=== PATIENT | male | born 1995 | race Caucasian/White ===

== ENCOUNTER → 2017-02-27 | Day surgery (SDC) | payer OTHER ==
[2017-01-31 13:48] VITALS: Ht 175.3 cm; Wt 75.0 kg
--- NOTE | 2017-02-26 17:52 | HISTORY & PHYSICAL EXAMINATION ---
DATE OF ADMISSION: 02/27/2017 CHIEF COMPLAINT: Right axillary skin mass times many months. HISTORY OF PRESENT ILLNESS: The patient is a pleasant 21-year-old male who is here today, seen and evaluated by Dr. Werner. I was asked to perform a preoperative history and physical. He is scheduled to have an excision of a right axillary skin mass with Dr. Werner on 02/27/2017. He states that he has had the mass on and off for many months, maybe up to 2 years. He says it has been lanced in the past and he has expressed material from it in the past. It continues to return, it does fluctuate slightly in size. He denies any pain, fevers or chills. He states he has previously squeezed out some whitish material. It has been there at least for the last 6 months. 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 He is currently out of hockey and would like to have it excised. He denies any known injury. Denies any previous problems with his right axilla. Denies any numbness or tingling. Denies any evidence of infection and states that it becomes red one time but nothing recently. PAST MEDICAL HISTORY: No significant past medical history. CURRENT MEDICATIONS: He takes no daily medications. ALLERGIES: He has no known drug allergies. SOCIAL HISTORY: Denies any tobacco, alcohol or drug use. He is a [employer] student. He plays hockey. PAST SURGICAL HISTORY: [place] teeth extraction. FAMILY HISTORY: Reviewed and noncontributory. REVIEW OF SYSTEMS: He denies any recent cough, cold, fevers, chills, flu-like symptoms or hospitalizations. Denies any chest pain or shortness of breath. Denies any lightheadedness or dizziness. Denies any bleeding, clotting disorders. He denies any abdominal pain, nausea, vomiting, diarrhea, constipation or urinary symptoms. Denies any issues with hearing loss or blurry vision. PHYSICAL EXAMINATION: GENERAL: He is alert and oriented x3. He is in no acute distress. Well-dressed, well-nourished male, normal mood and affect. Height is 5 feet 9 inches, weighs 165 pounds. HEENT: Head is atraumatic, normocephalic. EYES: Extraocular movements intact. Pupils are equal, round and reactive to light. Sclerae are normal. EARS: Hearing is grossly normal. TMs are clear with normal light reflex. NOSE: Nares are patent bilaterally. THROAT: Oropharynx is clear. Mucous membranes are moist. Good dentition. Uvula midline. NECK: Supple without lymphadenopathy, nontender range of motion. Trachea midline. CHEST: Nontender to palpation. LUNGS: Clear to auscultation bilaterally. No adventitious sounds. HEART: Regular rate and rhythm, normal S1, S2, no murmurs appreciated. ABDOMEN: Soft, nontender. Bowel sounds heard in all 4 quadrants. EXTREMITIES: Examination of his right axilla reveals no lymphadenopathy. There is a 5 mm firm lesion confined to the subcutaneous area of the skin. There is some mild fluctuance. He has full movement of his shoulder with normal distal neurovascular function in axillary musculocutaneous, median, radial, and ulnar nerves. Full movement of the hand, wrist, forearm and elbow. Circulation is normal. There are no other lesions present and he does not have any pustules or pimples in his axilla. There is no lymphadenopathy present. RADIOLOGY IMAGES: No images were taken. ASSESSMENT: Subcutaneous skin mass, right axilla probable sebaceous cyst. PLAN: The patient is scheduled for an excisional biopsy of the right axillary mass with Dr. Werner on 02/27/2017 at the [facility]. Risks and complications were explained to the patient include but are not limited to infection, pain, bleeding, scarring, nerve and blood vessel damage, wound problems, weakness, stiffness, incomplete relief of symptoms, recurrent blood clots, embolisms, heart attack, stroke and . All questions were answered, informed consent was obtained. He does not need any preoperative lab work, EKG or medical clearance prior to surgery. Postoperatively follow up appropriately few days after surgery with his senior animal trainer as well as with Dr. Werner approximately 10-14 days after surgery for suture removal. All questions were answered and he knows to call with any further problems, questions or concerns. He was given a prescription for Evergreen 10 tablets for postoperative pain control. PT, PTT, BMP was checked with no issues identified. All questions were answered.
[~2017-02-27] VITALS: Ht 175.3 cm; Wt 75.0 kg
[~2017-02-27] MED LIST: ASCA500 PO; ATROPINE SULFATE 0.1 MG/ML 5ML SYR IV PRN; BUPIVACAINE 0.5 % 5 MG/1 ML MPF 30ML VIAL ONE; BUPIVACAINE/EPINEPHRINE 0.5% MPF 1:200,000 30 ML VIAL ONE; CEFAZOLIN 2000MG IV PUSH 10 ML IV SCH; FENTANYL CITRATE INJ 50 MCG/1 ML 2 ML VIAL IV PRN; FENTANYL CITRATE INJ 50 MCG/1 ML 2 ML VIAL ONE; HYDR-5688 PO; HYDROCODONE/ACETAMOPHEN 5/325MG TAB PO PRN; KETOROLAC TROMETHAMINE 30 MG/ML VIAL IV. PRN; LACTATED RINGER'S 1000ML 1,000 ML IV SCH; LIDOCAINE HCL 2% 2 ML VIAL (20MG/ML) ONE; LIDOCAINE/EPINEPHRINE 1% INJ 50 ML VIAL ONE; MIDAZOLAM HCL 1 MG/ML 2ML VIAL ONE; ONDANSETRON INJ 2 MG/ML 2 ML VIAL IV PRN; ONDANSETRON INJ 2 MG/ML 2 ML VIAL ONE; PROPOFOL IV EMULSION 10 MG/ML 20 ML VIAL IV ONE; SODIUM CHLORIDE 0.9% 1000ML 1,000 ML IV SCH
--- NOTE | 2017-02-27 10:55 | History & Physical Bridge Note ---
H&P Re-Evaluation Bridge Note: I have examined the patient, reviewed the History & Physical and in the interval since the performance of the History & Physical I have noted the following changes of clinical significance: No changes noted
--- NOTE | 2017-02-27 11:41 | Discharge Instructions-SurgCtr ---
Discharge Instructions Date of Service Feb 27, 2017. Visit Reason for Visit: Right Axilla Sebaceous Cyst Discharge Discharge Diagnosis / Problem: Right axilla mass Discharge Goals Goal(s): Decrease discomfort, Improve function, Increase independence Activity Recommendations Activity Limitations: per Instructions/Follow-up section Shower/Bathe: may shower/bathe in 3 days Weightbearing Status: Right weightbearing (as tolerated) Resume regular activities in 2 weeks. No pushing, pulling, lifting, or strenuous activities for 2 weeks. Anesthesia . Post Anesthesia Instructions: If you have had General Anesthesia or IV Sedation: * Do not drive today. * Resume driving when surgeon permits. * Do not make important decisions or sign legal documents today. * Call surgeon for: 1. Temperature elevations greater than 101 degrees F. 2. Uncontrollable pain. 3. Excessive bleeding. 4. Persistent nausea and vomiting. 5. Medication intolerance (nausea, vomiting or rash). * For nausea and vomiting use only clear liquids such as: tea, soda, bouillon until nausea subsides, then gradually increase diet as tolerated. * If you have any concerns or questions, call your surgeon's office. If physician is unavailable and it is an emergency, call 911 or go to the nearest emergency room. . Instructions / Follow-Up Instructions / Follow-Up DIET: * Resume previous diet. MEDICATIONS: * Please take your prescriptions as instructed at your pre-op appointment and/ or see medication discharge instructions listed above. * If concerns develop, call your physician's office at . SPECIAL CARE INSTRUCTIONS: * Ice/Elevate right arm as needed for pain/swelling * Keep dressing clean, dry, intact x 4 days, then may remove and keep covered with light dressing or Band-aid as needed. * You may begin to shower after 3-4 days. Do not scrub or soak wound, pat incision dry. * Do not use deodorant in your right armpit until seen by Dr. Werner or at least 10 days after surgery. may interfere with the glue closure of the incision. * Your surgical extremity may be discolored due to prepping agents used on the skin. A bluish-green tint is a normal variant and should not cause alarm. Call your doctor at [phone] if: * Temperature above 101 degrees * Pain not relieved by pain medicine ordered * There is increased drainage or redness from any incision * You have any unanswered questions, problems or concerns. FOLLOW UP VISIT: * If not already scheduled, please call the office at to schedule a follow-up appointment. * Remove your dressings in 4 days, then follow up with Dr. Werner in the training room when you get back to [facility]. Please call [phone] with any questions, concerns or need to schedule appointment. Diet Recommendations Home Diet: no limitations, resume previous diet Pending Studies Studies pending at discharge: no Medical Emergencies . Who to Call and When: Medical Emergencies: If at any time you feel your situation is an emergency, please call 911 immediately. . Non-Emergent Contact Non-Emergency issues call your: Surgeon Call Non-Emergent contact if: temperature is above 101, your pain is not controlled, wound has increased drainage, wound has increased redness, wound has increased pain, you have any medication questions . . "Provider Documentation" section prepared by Kassi Sharma. . [place] Drug Monitoring Program Search Results: patient reviewed within database, no issues identified
--- NOTE | 2017-02-27 11:59 | [facility] Post Operative Brief Note ---
Immediate Operative Summary Operative Date Feb 27, 2017. Pre-Operative Diagnosis Right Axilla skin Mass Post-Operative Diagnosis Same Procedure(s) Performed Right Axilla Mass Excision Surgeon Dr. Werner Skoog Patching Machine Operator Surgeon(s) Dr. Montoya Estimated Blood Loss 1 mL Findings skin lesion Specimens A. Right Axillary Skin Lesion Drains 0 Anesthesia local with sedation Complication(s) None Disposition Recovery Room / PACU
[2017-02-27 12:05] VITALS: TEMP 36.5
--- NOTE | 2017-02-27 12:37 | OPERATIVE REPORT ---
DATE OF OPERATION: 02/27/2017 PREOPERATIVE DIAGNOSIS: Right axillary skin lesion. POSTOPERATIVE DIAGNOSIS: Same. PROCEDURE PERFORMED: Excisional biopsy. SURGEON: Dr. Werner. PROGRAMMING DIRECTOR: Bacilio Montoya, fellow. ANESTHESIA: Local with sedation. INDICATIONS OF PROCEDURE: The patient is a 21-year-old male with what appeared to be a sebaceous cyst in the right axillary area which has been refractory to previous I&D and manual decompression. He wishes to have this excised. PROCEDURE IN DETAIL: Informed consent was obtained. The patient was identified as Suhas Muniz. He identified the operative site as the right axilla. I marked it with my initials and the lesion was identified. The lesion was about 1 cm in diameter, had a little punctum at the center and was contained within the skin and immediate subcutaneous tissues. There was no erythema or drainage noted. Surgical time-out was done. A preop dose of IV antibiotics was given. He was positioned supine on the OR table with a bump under the right shoulder. The right shoulder, axilla, and arm down to the forearm were prepped and draped in the usual sterile fashion. DVT prophylaxis was not indicated. Prior to start of the procedure, 10 mL of 1% lidocaine and 0.5% Marcaine with epinephrine were injected. Routine prep and drape was performed. After adequate analgesia and sedation an ellipsoid incision was made about 2 cm in length centered over the lesion. A combination of blunt and sharp dissection were utilized down through the skin and subcutaneous tissues to excise the lesion en bloc. This was sent for specimen. Palpation revealed that there were no other lesions present. The wound was irrigated. Bleeding was minimal. The skin was closed with 4-0 subdermal Vicryl sutures followed by Dermabond. A soft sterile dressing was applied. The patient awakened from anesthesia and taken to recovery room in stable condition. The resected lesion was sent for specimen. There were no complications. Counts were correct at the end of the case. Blood loss was minimal. At the conclusion of the operation, I spoke to the patient's friend and informed them of my findings. Postoperative instructions were given. He does not need a return for suture removal. He will be going home over break. We will gradually advance his activities and he will follow up with me after break is over, sooner if necessary or with doctor at home. I attest to the content of the Intraoperative Record and any orders documented therein. Any exception s are noted below.
[2017-02-27 12:50] VITALS: BP 121/79; PULSE 60; O2SAT 96
--- NOTE | 2017-02-27 12:50 | Anesthesia Progress Nt - [facility] ---
Anesthesia Post Op Note Date & Time Feb 27, 2017 at 12:50 Vital Signs Pain Intensity: 0 Vital Signs Past 12 Hours Date Time Temp Pulse Resp B/P (MAP) Pulse Ox O2 Delivery O2 Flow Rate FiO2 02/27/17 12:05 36.5 66 12 112/72 (85) 99 Room Air 02/27/17 08:40 36.5 68 16 128/83 (98) 97 Room Air Notes Mental Status: alert / awake / arousable, participated in evaluation Pt Amnestic to Procedure: Yes Nausea / Vomiting: adequately controlled Pain: adequately controlled Airway Patency, RR, SpO2: stable & adequate BP & HR: stable & adequate Hydration State: stable & adequate Anesthetic Complications: no major complications apparent
== END | disposition home or self-care (01) ==
LOC: X.SURG 08:19
PROVIDERS: ATTEND Physical Medicine & Rehabilitation Sports Medicine
DX: L72.0 Epidermal cyst (principal)